=== PATIENT | male | born 1940 | race Caucasian/White ===

== ENCOUNTER 2016-10-19 09:30 | Observation (INO) ==
--- NOTE | 2016-10-19 09:43 | Emergency Department Note ---
Disposition Clinical Impression: Antibiotic-associated diarrhea, Dehydration Disposition: Admitted As Inpatient Condition: Undetermined Time of Disposition: 12:36 Arrhythmia/Palpitations HPI - General Chief Complaint: ED Arrhythmia/Palpitations Stated Complaint: Weakness/ Arrhythmia Time Seen by Provider: 10/19/16 09:39 Source: patient, EMS Mode of arrival: EMS Limitations: no limitations Nursing Notes Reviewed: Yes Vital Signs Reviewed: Yes - History of Present Illness HPI Narrative: 76-year-old male with history of irregular heartbeat where he takes atenolol, arrives to [facility] emergency department with diarrhea, vomiting, weakness. The patient states that he typically has diarrhea due to diet but states that roughly 1 week ago it acutely worsened. The patient states in addition that it acutely worsened even more yesterday evening. The patient states he is having severe diarrhea at this time. In addition the patient states that roughly 11 PM last night he began vomiting. The patient has had 3-4 episodes of vomiting since then. The patient's became concerned as she checked on the patient overnight and he was tachycardic with a heart rate in the 130s. She administered his atenolol to attempt to slow his heart rate down. The patient states that he vomited after taking the atenolol. He denies any associated abdominal pain with this. The states that the patient was recently treated with 2 different antibiotics for a UTI. He was on Bactrim but the bacteria was resistant. He was placed on Macrobid which she finished yesterday. The patient does state that he was fly fishing in [place] but was not camping and did not drink any water while he was out fly fishing. The patient denies any other change in his routine or symptoms. The patient did recently return from a 7 hour car ride yesterday but states that nothing was abnormal with it. The patient denies any other complaints at this time including chest pain, difficulty breathing, abdominal pain, focalized weakness, fever, chills. Pt Subjective Complaint: rapid heart beat Onset (ago): day(s) (1) Associated symptoms: Reports: nausea, vomiting, other (Diarrhea) - Related Data Home Medications Medication Instructions Recorded Confirmed Acetaminophen [Tylenol] 650 mg PO HS PRN 10/19/16 10/19/16 Aspirin 325 mg PO DAILY 10/19/16 10/19/16 Atenolol [Tenormin] 25 mg PO DAILY 10/19/16 10/19/16 Cholecalciferol (Vitamin D3) 1,000 unit PO DAILY 10/19/16 10/19/16 [Vitamin D] Cinnamon Bark [Cinnamon] 1,000 mg PO DAILY 10/19/16 10/19/16 Cranberry 500 mg PO DAILY 10/19/16 10/19/16 Cyanocobalamin (Vitamin B-12) 1,000 mcg SL DAILY 10/19/16 10/19/16 [Vitamin B-12] Metformin HCl [Glucophage] 1,000 mg PO BID 10/19/16 10/19/16 Allergies Allergy/AdvReac Type Severity Reaction Status Date / Time No Known Allergies Allergy Verified 10/19/16 12:48 All systems ED: reviewed and negative except as stated. Constitutional: Reports: weakness. Denies: fever, chills, weight change Cardiovascular: Denies: chest pain, palpitations, dyspnea on exertion, edema, syncope Respiratory: Denies: cough, dyspnea, wheezes, hemoptysis, stridor Gastrointestinal: Reports: nausea, vomiting, diarrhea. Denies: abdominal pain, constipation, hematemesis, melena, hematochezia Genitourinary: Reports: frequency. Denies: urgency, dysuria, hematuria Musculoskeletal: Denies: back pain, neck pain, arthralgia, myalgia Integumentary: Denies: rash, abrasion, lesions Neurological: Reports: weakness. Denies: headache, numbness, paresthesias, confusion, abnormal gait, vertigo Past Medical History - Past Medical History Attestation: Yes The following information was validated with the patient. Source: patient, obtained from family Medical history: Reports: atrial fibrillation, diabetes, hypertension Surgical history: Reports: appendectomy, other Psychiatric history: Reports: no psych history - Social History Smoking Status: Former smoker Smokeless Tobacco Status: No Alcohol use: Reports: occasionally Drug use: Reports: none Physical Exam - General Limitations: no limitations General appearance: alert, in no apparent distress - Head Head exam: atraumatic, normocephalic, normal inspection - ENT ENT exam: mucous membranes dry - Neck Neck exam: Present: normal inspection, full ROM, trachea midline - Chest Chest inspection: Present: normal inspection, symmetric chest wall rise - Respiratory Respiratory exam: Present: normal lung sounds bilaterally - Cardiovascular Cardiovascular exam: Present: normal rhythm, tachycardia, normal heart sounds - Abdominal Exam Abdominal exam: Present: soft, Non-Tender, normal bowel sounds. Absent: tenderness, distention, guarding, rebound, rigidity, psoas sign, obturator sign , heel tap sign, Nagy's sign, Rovsing's sign, tenderness at McBurney's Point - Extremities Exam Extremities exam: Present: normal inspection, full ROM. Absent: tenderness, pedal edema - Neurological Exam Neurological exam: Present: alert, oriented X3, CN II-XII intact - Skin Skin exam: Present: warm, dry, intact, normal color Course - Reevaluation(s) Reevaluation #1: Patient's heart rate continues to be in the 130s after 1 L fluid. We will administer second liter. Urinalysis is unremarkable. Labs are otherwise unremarkable. We will determine if second liter does improve his heart rate. If his heart rate does not improve after the second liter, we will administer the patient's dose of atenolol as the patient likely vomited his last dose. The patient will likely be admitted to the hospital given his tachycardia and his symptoms. Stool cultures currently pending. Patient agrees to plan. Vital Signs Temperature 97.9 F 10/19/16 09:32 Pulse Rate 115 10/19/16 09:32 Respiratory Rate 16 10/19/16 09:32 Blood Pressure 125/87 10/19/16 09:32 O2 Sat by Pulse Oximetry 95 10/19/16 09:32 Temperature 97.8 F 10/19/16 14:17 Pulse Rate 98 10/19/16 14:17 Respiratory Rate 16 10/19/16 14:17 Blood Pressure 108/70 10/19/16 14:17 O2 Sat by Pulse Oximetry 98 10/19/16 14:17 Oxygen Delivery Oxygen Delivery Room Air Arrhythmia/Palpitations - MDM Narrative Medical decision making narrative: She states she is feeling much better at this time after receiving 2 L IV fluids. We will administer IV fluids at 200 mL per hour. Patient's tachycardia has began to resolve as the patient's heart rate is jumping between 105-110. This is improved from the 1:30 that he was previously. The patient denies any other complaints at this time. Given the patient's continued tachycardia, we will admit the patient to the hospital for further observation. Patient agrees to this plan. Accepted by Dr. Juan. - Lab Data Lab results reviewed: Yes I reviewed the patient's lab results. Result diagrams: 10/19/16 09:43 10/19/16 09:43 Lab Results 10/19/16 10/19/16 10/19/16 Range/Units 09:43 09:43 09:43 WBC 8.7 (4.3-11.1) K/mcL RBC 4.30 (4.19-5.50) M/mcL Hgb 13.5 (12.9-16.9) g/dL Hct 38.7 (37.5-50.1) % MCV 90.0 (83.0-100.0) fL MCH 31.4 (28.0-33.3) pg MCHC 34.9 (31.6-35.5) g/dL RDW 12.8 (11.5-14.5) % Plt Count 207 (140-400) K/mcL MPV 9.1 L (9.4-12.4) fL Immature Gran % 0.5 (0-4) % Seg Neutrophils % 80.6 % Lymphocytes % 12.8 % Monocytes % 6.0 % Eosinophils % 0.0 % Basophils % 0.1 % Neutrophils # 7.0 (1.6-8.9) K/mcL Lymphocytes # 1.1 (0.6-4.6) K/mcL Monocytes # 0.5 (0.0-1.3) K/mcL Eosinophils # 0.0 (0.0-0.6) K/mcL Basophils # 0.0 (0.0-0.2) K/mcL Sodium 134 L (136-145) mEq/L Potassium 4.1 (3.5-4.5) mEq/L Chloride 100 (98-109) mEq/L Carbon Dioxide 28 (19-29) mEq/L BUN 15 (8-26) mg/dL Creatinine 0.64 L (0.72-1.25) mg/dL Est GFR ( Amer) > 60 (> 60) Est GFR (Non-Af Amer) > 60 (> 60) BUN/Creatinine Ratio 23 (6-26) Glucose 185 H (70-99) mg/dL Calculated Osmolality 284 (280-300) Lactic Acid 1.4 (0.5-2.2) mmol/L Calcium 8.6 (8.6-10.8) mg/dL Urine Color (Yellow) Urine Clarity (Clear) Urine pH (5.0-8.0) pH Units Ur Specific [place] (1.010-1.025) Urine Protein (Neg-Trace) mg/dL Urine Glucose (UA) (Normal) mg/dL Urine Ketones (Negative) mg/dL Urine Blood (Negative) Urine Nitrite (Negative) Urine Bilirubin (Negative) Urine Urobilinogen (Normal) mg/dL Ur Leukocyte Esterase (Negative) Ur Culture Indicated? (NO) 10/19/16 Range/Units 10:52 WBC (4.3-11.1) K/mcL RBC (4.19-5.50) M/mcL Hgb (12.9-16.9) g/dL Hct (37.5-50.1) % MCV (83.0-100.0) fL MCH (28.0-33.3) pg MCHC (31.6-35.5) g/dL RDW (11.5-14.5) % Plt Count (140-400) K/mcL MPV (9.4-12.4) fL Immature Gran % (0-4) % Seg Neutrophils % % Lymphocytes % % Monocytes % % Eosinophils % % Basophils % % Neutrophils # (1.6-8.9) K/mcL Lymphocytes # (0.6-4.6) K/mcL Monocytes # (0.0-1.3) K/mcL Eosinophils # (0.0-0.6) K/mcL Basophils # (0.0-0.2) K/mcL Sodium (136-145) mEq/L Potassium (3.5-4.5) mEq/L Chloride (98-109) mEq/L Carbon Dioxide (19-29) mEq/L BUN (8-26) mg/dL Creatinine (0.72-1.25) mg/dL Est GFR ( Amer) (> 60) Est GFR (Non-Af Amer) (> 60) BUN/Creatinine Ratio (6-26) Glucose (70-99) mg/dL Calculated Osmolality (280-300) Lactic Acid (0.5-2.2) mmol/L Calcium (8.6-10.8) mg/dL Urine Color Yellow (Yellow) Urine Clarity Clear (Clear) Urine pH 7.0 (5.0-8.0) pH Units Ur Specific [place] 1.016 (1.010-1.025) Urine Protein Negative (Neg-Trace) mg/dL Urine Glucose (UA) 250 H (Normal) mg/dL Urine Ketones Negative (Negative) mg/dL Urine Blood Negative (Negative) Urine Nitrite Negative (Negative) Urine Bilirubin Negative (Negative) Urine Urobilinogen Normal (Normal) mg/dL Ur Leukocyte Esterase Negative (Negative) Ur Culture Indicated? NO (NO) - EKG Data EKG attestation: Yes I reviewed and interpreted this EKG. EKG results narrative: Heart rate 1 18 bpm. QTC 378 ms. Normal axis. Atrial fibrillation. No ST elevation or ST depression noted. EKG similar to EKG from 04/04/2016 with the exception of noted atrophic relation on current EKG. No other acute findings noted. Attestation Statement - Attestation Attestation: I examined this patient and my medical decision-making was reviewed with the Resident Physician. I agree with the documented findings, disposition and treatment plan as described except to the extent set forth below. Chronic A-fib pt presents with profuse antibiotic-associated diarrhea and with vomiting,elevated HR. Feeling significantly better but not back to baseline after hydration, HR has improved but not normalized. Agree with work up and treatment initiated by Dr. Gordon, discussed with him in detail.
[2016-10-19 09:53] LABS: Basophils % 0.1 %; Hematocrit 38.7 % (37.5-50.1); Hemoglobin 13.5 g/dL (12.9-16.9); Immature Granulocytes % 0.5 % (0-4); Lymphocytes # 1.1 K/mcL (0.6-4.6); Lymphocytes % 12.8 %; Mean Corpuscular HGB Conc 34.9 g/dL (31.6-35.5); Mean Corpuscular Hemoglobin 31.4 pg (28.0-33.3); Mean Platelet Volume 9.1 fL (9.4-12.4); Monocytes # 0.5 K/mcL (0.0-1.3); Platelet Count 207 K/mcL (140-400); Red Cell Distribution Width 12.8 % (11.5-14.5); Segmented Neutrophils % 80.6 %
[2016-10-19 10:05] LABS: BUN/Creatinine Ratio 23 (6-26); Blood Urea Nitrogen 15 mg/dL (8-26); Calcium 8.6 mg/dL (8.6-10.8); Carbon Dioxide 28 mEq/L (19-29); Chloride 100 mEq/L (98-109); Glucose 185 mg/dL (70-99); Osmolality,Calculated 284 (280-300); Potassium 4.1 mEq/L (3.5-4.5); Sodium 134 mEq/L (136-145); eGFR For African Americans > 60 (> 60); eGFR For Non-African Americans > 60 (> 60)
[2016-10-19] MEDS ORDERED: 0.9 % Sodium Chloride 1,000 ML IVC ONE (11:05)
[2016-10-19 11:08] LABS: Bilirubin,Urine Negative (Negative); Blood,Urine Negative (Negative); Clarity,Urine Clear (Clear); Color,Urine Yellow (Yellow); Glucose,Urine (UA) 250 mg/dL (Normal); Ketones,Urine Negative (Negative); Leukocyte Esterase,Urine Negative (Negative); Nitrite,Urine Negative (Negative); Protein,Urine Negative (Neg-Trace); Specific Gravity,Urine 1.016 (1.010-1.025); Urobilinogen,Urine Normal (Normal)
[2016-10-19] MEDS ORDERED: 0.9 % Sodium Chloride 1,000 ML IVC SCH (12:45)
[2016-10-19] MEDS ORDERED: Naloxone 0.4 MG/ML INJ IVP PRN (13:37)
[2016-10-19] MEDS ORDERED: Ondansetron 4 MG/2 ML VIAL IVP PRN (13:37)
[2016-10-19] MEDS ORDERED: Acetaminophen 325 MG TABLET PO PRN (13:42)
[2016-10-19] MEDS ORDERED: Dextrose Gel 15 GM PO PRN ×2 (13:43)
[2016-10-19] MEDS ORDERED: D5% in Water 1,000 ML IVC PRN (13:43)
[2016-10-19] MEDS ORDERED: *HR* Dextrose 50 % in Water (Syg) 50 ML SYRINGE IVP PRN (13:43)
--- NOTE | 2016-10-19 13:46 | Internal Med History&Physical ---
<Gómez Ramírez - Last Filed: 10/19/16 15:43> Date of Encounter: 10/19/16 Time of Encounter: 13:00 Assessment and Plan (1) A-fib Current visit: Yes Status: Acute Assess: Patient presents with history of atrial fibrillation and reports this is a new episode. Most likely due to dehydration status, nausea, vomiting. Plan: Continuous cardiac oil expert patient vital signs Continue Atenolol Qualifiers: Atrial fibrillation type: unspecified Qualified Code(s): I48.91 - Unspecified atrial fibrillation (2) Nausea & vomiting Current visit: Yes Status: Acute Assess: Patient presents with non-intractable nausea and vomiting for the past week. Plan: Blood cultures ordered Urine culture ordered Nothing by mouth diet with progression to clear liquid diet as tolerated IV Zofran ordered IV Protonix 40 mg daily ordered Qualifiers: Vomiting type: cyclical vomiting Vomiting Intractability: non-intractable Qualified Code(s): G43.A0 - Cyclical vomiting, not intractable (3) Diarrhea Current visit: Yes Status: Acute Assess: Patient presents with acute diarrhea which she reports has been occurring for the past week in association with nausea and vomiting. Patient was recently placed on Bactrim then Macrobid for recent UTI. Cannot rule out possible C. diff infection. Plan: C. diff culture ordered Stool culture ordered Ova/parasite culture ordered Consider infection coverage for C. diff when results are known Qualifiers: Diarrhea type: unspecified type Qualified Code(s): R19.7 - Diarrhea, unspecified (4) Weakness generalized Current visit: Yes Status: Acute Assess: Patient presents with generalized weakness due to repeated episodes of nausea, vomiting, and diarrhea over the past week. Plan: Falls precautions [id number] status Bed rest with bedside commode with assist (5) Dehydration Current visit: Yes Status: Acute Assess: Patient presents with acute dehydration due to repeated nausea, vomiting, diarrhea for the past week. Plan: Administer IV fluids Follow-up labs ordered NPO status with progression to clear liquid diet as tolerated (6) DVT prophylaxis Current visit: Yes Status: Acute Assess: Patient to be placed on DVT prophylaxis due to admission protocol and bed rest status. Plan: Heparin 5,000 units SQ Q8 Internal Medicine - H&P: HPI Chief complaint: N/V/Diarrhea Admitted From: Emergency Dept Plans for Post Hospital Care: Home History of present illness: Mr. Phillips is a 76 year old male who presents from the ED with chief complaint of nausea, vomiting, and diarrhea for the week that has become progressively worse. Patient reports they went camping and stayed in a cabin and ate at the [employer] and then his symptoms began and worsened on the trip home. Patient reports dizziness, blurry vision, confusion, and urinary incontinence which have accompanied these symptoms. Mr. Phillips states that he was recently diagnosed with a UTI and placed on PO Bactrim but organism was found to be resistant. Patient was then placed on Macrobid and completed his last round today. Patient is currently dehydrated due to repeated N/V/D and has received IV fluids 200 mL/HR in ED. We will continue IV fluids and he will be placed on continuous cardiac telemetry. Orders placed for C. difficile, blood cultures, stool cultures, ova/parasites, and urine cultures. Patient to be placed nothing by mouth status with advancement to clear liquid diet as tolerated. Patient is at moderate risk due to atrial fibrillation and risk factors as well as current dehydration status and will replace his observation with falls precautions and up with assist only. Time spent with patient >40minutes. Past Med Surg Social Fam HX - Past Medical History Source: patient Medical history: atrial fibrillation, diabetes, hypertension Psychiatric history: no psych history - Past Surgical History Surgical History: appendectomy, other - Social History Smoking Status: Former smoker Smokeless Tobacco Status: No Alcohol use: occasionally Drug use: none - Family History Father Race: Family Member Ethnicity: Non- Living Status: Age at : 70 Cause of : Colon cancer Hx Family Cancer: Yes (Colon) Mother Race: Family Member Ethnicity: Non- Living Status: Age at : 92 Cause of : Cancer Hx Family Cancer: Yes (Breast, uterine, cervical) Sister Race: Family Member Ethnicity: Non- Living Status: Still Living Hx Family Cardiac Disorders: Yes (Afib) Hx Family Endocrine Disorder: Yes (DM) Internal Medicine - H&P: Meds Acetaminophen [Tylenol] 650 mg PO HS PRN 10/19/16 [History] Aspirin 325 mg PO DAILY 10/19/16 [History] Atenolol [Tenormin] 25 mg PO DAILY 10/19/16 [History] Cholecalciferol (Vitamin D3) [Vitamin D] 1,000 unit PO DAILY 10/19/16 [History] Cinnamon Bark [Cinnamon] 1,000 mg PO DAILY 10/19/16 [History] Cranberry 500 mg PO DAILY 10/19/16 [History] Cyanocobalamin (Vitamin B-12) [Vitamin B-12] 1,000 mcg SL DAILY 10/19/16 [ History] Metformin HCl [Glucophage] 1,000 mg PO BID 10/19/16 [History] Allergies No Known Allergies Allergy (Verified 10/19/16 12:48) All Systems PM: A 10-system review of systems was performed and is negative for pertinent findings except as documented above in the HPI. - Constitutional Constitutional: no chills, no fever(s), no night sweats - EENT Eyes: as per HPI, blurry vision Ears: no ear discharge, no ear pain, no tinnitus Nose, mouth and throat: no dysphagia, no nasal discharge, no neck pain, no sore throat - Cardiovascular Cardiovascular ROS IM: as per HPI, irregular heart rhythm - Respiratory Respiratory: no cough, no dyspnea, no wheezing, no excessive phlegm production - Gastrointestinal Gastrointestinal: as per HPI, diarrhea, nausea, vomiting - Genitourinary Genitourinary ROS male: as per HPI, urinary incontinence - Musculoskeletal Musculoskeletal ROS IM: no numbness, no tingling - Integumentary Integumentary IM: no rash, no unusual bruising - Neurological Neurological ROS: no confusion, no convulsions, no focal weakness, no numbness, no tingling, no tremor(s) - Psychiatric Psychiatric: as per HPI - Endocrine Endocrine IM: as per HPI - Hematologic/Lymphatic Hematologic/Lymphatic: as per HPI - Allergic/Immunologic Allergic/Immunologic: as per HPI - Constitutional Vitals: Temp Pulse Resp BP Pulse Ox 97.9 F 111 16 99/62 95 10/19/16 09:32 10/19/16 11:00 10/19/16 11:00 10/19/16 11:00 10/19/16 11:00 General appearance: Present: cooperative, A&O X 3, pleasant, no acute distress, answers questions appropriately - Head Head exam: Present: atraumatic, normocephalic - Eye Eye exam: Present: PERRL, conjuntiva pink, sclera anicteric Pupils: Present: PERRL - ENT ENT exam: Present: normal exam, normal external ear exam - Neck Neck exam general surgery: Present: supple, trachea midline. Absent: lymphadenopathy - Respiratory Respiratory exam: Present: CTAB. Absent: accessory muscle use, rales, rhonchi, wheezes - Cardiovascular Cardiovascular exam: Present: irregular rhythm - GI/Abdominal GI/Abdominal exam: Present: diminished bowel sounds, soft - Rectal Rectal exam: Present: deferred - Additional comments: exam deferred. - Extremities Exam Extremities exam: Present: normal inspection, warm, radial pulses palpable and symetrical. Absent: calf tenderness, cyanotic, pedal edema - Back Exam Back exam: Present: normal inspection - Neurological Exam Neurological exam: Present: CN II-XII intact, oriented X3, no focal deficits. Absent: pronater drift, facial droop, speech deficit - Psychiatric Psychiatric exam: Present: normal affect, normal mood - Skin Skin exam: Present: dry, intact Internal Med - H&P Results - Labs CBC & Chem 7: 10/19/16 09:43 10/19/16 09:43 - EKG Data Prior EKG available for review: yes When compared to previous EKG: there are significant changes EKG comments: 10/19/16 13:59 EKG dated 04/04/16 shows sinus rhythm with occasional ventricular premature complexes. EKG dated 10/19/16 shows atrial fibrillation with rapid ventricular response. <Faye Juan - Last Filed: 10/19/16 16:07> Date of Encounter: 10/19/16 Time of Encounter: 14:00 Internal Medicine - H&P: HPI History of present illness: Mr. Phillips is a 76 year old male All Systems PM: A 10-system review of systems was performed and is negative for pertinent findings except as documented above in the HPI. - Constitutional Vitals: Temp Pulse Resp BP Pulse Ox 97.8 F 98 16 108/70 98 10/19/16 14:17 10/19/16 14:17 10/19/16 14:17 10/19/16 14:17 10/19/16 14:17 Internal Med - H&P Results - Labs CBC & Chem 7: 10/19/16 09:43 10/19/16 09:43 - Attending Attestation I examined this patient and my medical decision-making was reviewed with the nurse practitioner. I agree with the documented history of present illness, review of systems, past medical, surgical social and family histories and examination findings, disposition and treatment plan as described above except to any changes set forth below. 76-year-old male patient with a history of paroxysmal atrial fibrillation, diabetes mellitus and hypertension presented to the ER with complaints of nausea and vomiting and diarrhea that began a week the back and has been progressively getting worse. He had been recently treated for UTI with 2 different courses of antibiotics. On arrival to the ER the patient was found to be in rapid A. fib and was also noted to be dehydrated. She was given IV fluids with improvement in his heart rate. He denies any chest pain. He has not had any further episodes of diarrhea here but, with his says that she will receive Imodium prior to coming in here. He has not been able to take his atenolol this morning due to nausea and vomiting. On examination, patient has irregularly irregular rhythm with tachycardia, mucous membranes are moist. Respiratory examination shows normal breath sounds. No pedal edema. Paroxysmal atrial fibrillation with rapid ventricular response: Likely related to dehydration and hypovolemia and inability to take atenolol. Improving with volume replacement. Monitor with telemetry. If heart rate continues to improve , we will not need any further medications besides resuming atenolol. Patient is currently not on anticoagulation. Nausea and vomiting along with diarrhea: Could be viral gastroenteritis but concern for C. difficile due to recent antibiotic use. We will check stool for C. difficile. Also checking for ova and parasites and other bacteria. Diabetes mellitus type 2: Monitor blood sugars. Sliding scale insulin. Patient will be nothing by mouth and then based on his symptoms may advance diet slowly to a diabetic diet.
[2016-10-19] MEDS ORDERED: Insulin LISPRO 300 UNITS/3 ML VIAL SQ SCH ×2 (16:30→21:00)
--- NOTE | 2016-10-19 17:32 | Electrocardiograph Report ---
[address] [place], [place] [address] Test Date: 2016-10-19 Pat Name: Chau Phillips Department: 105 Room: 3B16 Gender: M Lineman A Class: : 1940 Requested By: Gómez Gordon Order Number: [id number] Reading MD: Blanca Gamez Measurements Intervals Palms Rate: 118 P: CT: 0 QRS: -2 QRSD: 88 T: -2 QT: 308 QTc: 378 Interpretive Statements ATRIAL FIBRILLATION WITH RAPID VENTRICULAR RESPONSE Electronically Signed On 10-19-2016 17:31:12 EDT by Blanca Gamez
[2016-10-19 18:52] VITALS: BP 95/53
[2016-10-19] MEDS ORDERED: *HR* Heparin 5,000 UNIT/ML VIAL SQ SCH (22:00)
[2016-10-20] MEDS ORDERED: Aspirin 325 MG TABLET PO SCH (09:00)
[2016-10-20] MEDS ORDERED: Cholecalciferol (D-3) 1,000 UNIT TABLET PO SCH (09:00)
[2016-10-20] MEDS ORDERED: Pantoprazole 40 MG VIAL IVP SCH (09:00)
== END 2016-10-19 21:50 | disposition other institution (70) ==
LOC: 3BNU 09:30 → EMEROO 09:30 → 3BNU 13:49
PROVIDERS: ADMIT Internal Medicine; ATTEND Registered Nurse

== ENCOUNTER 2019-03-08 09:33 | Inpatient (IN) ==
[2019-03-08 10:15] LABS: Basophils % 0.3 %; Eosinophils # 0.2 K/mcL (0.0-0.6); Eosinophils % 1.9 %; Hematocrit 40.5 % (37.5-50.1); Hemoglobin 13.7 g/dL (12.9-16.9); Immature Granulocytes % 0.3 % (0-4); Lymphocytes # 0.9 K/mcL (0.6-4.6); Lymphocytes % 8.2 %; Mean Corpuscular HGB Conc 33.8 g/dL (31.6-35.5); Mean Corpuscular Volume 88.6 fL (83.0-100.0); Mean Platelet Volume 9.3 fL (9.4-12.4); Monocytes % 8.9 %; Neutrophils # 9.2 K/mcL (1.6-8.9); Platelet Count 218 K/mcL (140-400); Red Blood Count 4.57 M/mcL (4.19-5.50); Red Cell Distribution Width 12.9 % (11.5-14.5); Segmented Neutrophils % 80.4 %; White Blood Count 11.4 K/mcL (4.3-11.1)
[2019-03-08 10:18] LABS: INR 1.8; Prothrombin Time 20.6 Seconds (9.4-12.1)
[2019-03-08 10:19] LABS: Bilirubin,Urine Negative (Negative); Blood,Urine Small (Negative); Clarity,Urine Cloudy (Clear); Color,Urine Yellow (Yellow); Glucose,Urine (UA) Normal (Normal); Ketones,Urine Negative (Negative); Leukocyte Esterase,Urine Moderate (Negative); Nitrite,Urine Negative (Negative); Protein,Urine Negative (Neg-Trace); Specific Gravity,Urine 1.016 (1.010-1.025); Urobilinogen,Urine Normal (Normal)
[2019-03-08 10:22] LABS: Bacteria,Urine None Seen per hpf (None-Few); Hyaline Casts,Urine Moderate per lpf (None-Few); RBC,Urine 0-3 per hpf (0-3); Squamous Epithelial Cell,Urine Moderate per lpf (None-Few); WBC,Urine 30-50 per hpf (0-3)
[2019-03-08 10:35] LABS: Alanine Aminotransferase 10 Units/L (7-52); Albumin 4.1 g/dL (3.5-5.7); Albumin/Globulin Ratio 1.4 (1.1-2.2); Alkaline Phosphatase 36 Units/L (34-104); Aspartate Amino Transferase 12 Units/L (13-39); BUN/Creatinine Ratio 26 (6-26); Bilirubin,Direct 0.1 mg/dL (0.0-0.2); Bilirubin,Indirect 0.8 mg/dL (0.0-1.0); Bilirubin,Total 0.9 mg/dL (0.3-1.0); Blood Urea Nitrogen 19 mg/dL (8-23); Calcium 9.2 mg/dL (8.6-10.3); Carbon Dioxide 29 mEq/L (23-29); Chloride 100 mEq/L (98-107); Globulin 2.9 g/dL (2.4-3.5); Glucose 148 mg/dL (70-105); Osmolality,Calculated 287 (280-300); Potassium 4.1 mEq/L (3.5-5.1); Sodium 136 mEq/L (136-145); Troponin I < 0.03 ng/mL (< 0.04); eGFR For African Americans > 60 (> 60); eGFR For Non-African Americans > 60 (> 60)
[2019-03-08] MEDS ORDERED: Isovue-370 500 ML BOTTLE IVP ONE (10:41)
[2019-03-08] MEDS ORDERED: Piperacillin/Tazobactam 3.375 GM in Water for inj. (sterile) 20 ML IVP ONE (12:20)
[2019-03-08] MEDS ORDERED: Naloxone 0.4 MG/ML INJ IVP PRN (12:42)
[2019-03-08] MEDS ORDERED: D5% in Water 1,000 ML IVC PRN (12:45)
[2019-03-08] MEDS ORDERED: *HR* Dextrose 50 % in Water (Syg) 50 ML SYRINGE IVP PRN (12:45)
[2019-03-08] MEDS ORDERED: Dextrose Gel 15 GM/37.5 ML TUBE PO PRN ×2 (12:45)
[2019-03-08 13:00] LABS: Estimated Average Glucose 171 mg/dl
[2019-03-08] MEDS ORDERED: 0.9 % Sodium Chloride 1,000 ML IVC ONE (14:00)
[2019-03-08] MEDS: 0.9 % Sodium Chloride 1,000 ML IVC SCH (16:02)
[2019-03-08] MEDS: Insulin LISPRO 300 UNITS/3 ML VIAL SQ SCH (16:48)
[2019-03-08] MEDS: Piperacillin/Tazobactam 3.375 GM in 0.9 % Sodium Chloride Mini Bag 100 ML IVPB SCH (17:37)
[2019-03-08] MEDS ORDERED: *HR* Warfarin 3 MG TABLET PO ONE (18:00)
[2019-03-08] MEDS ORDERED: Warfarin perPT PO PRN (18:00)
[2019-03-09] MEDS: Piperacillin/Tazobactam 3.375 GM in 0.9 % Sodium Chloride Mini Bag 100 ML IVPB SCH ×3 (00:24→18:26)
[2019-03-09] MEDS: 0.9 % Sodium Chloride 1,000 ML IVC SCH ×3 (00:26→20:26)
[2019-03-09 05:25] LABS: Basophils % 0.5 %; Eosinophils # 0.2 K/mcL (0.0-0.6); Eosinophils % 3.6 %; Hematocrit 32.9 % (37.5-50.1); INR 1.8; Immature Granulocytes % 0.3 % (0-4); Lymphocytes # 1.7 K/mcL (0.6-4.6); Lymphocytes % 25.8 %; Mean Corpuscular HGB Conc 32.8 g/dL (31.6-35.5); Mean Corpuscular Hemoglobin 29.4 pg (28.0-33.3); Mean Corpuscular Volume 89.6 fL (83.0-100.0); Mean Platelet Volume 9.6 fL (9.4-12.4); Monocytes # 0.8 K/mcL (0.0-1.3); Monocytes % 12.6 %; Neutrophils # 3.7 K/mcL (1.6-8.9); Platelet Count 191 K/mcL (140-400); Red Blood Count 3.67 M/mcL (4.19-5.50); Red Cell Distribution Width 12.9 % (11.5-14.5); Segmented Neutrophils % 57.2 %; White Blood Count 6.4 K/mcL (4.3-11.1)
[2019-03-09 05:27] LABS: Hemoglobin 10.8 g/dL (12.9-16.9)
[2019-03-09 05:39] LABS: BUN/Creatinine Ratio 28 (6-26); Blood Urea Nitrogen 22 mg/dL (8-23); Calcium 8.1 mg/dL (8.6-10.3); Carbon Dioxide 29 mEq/L (23-29); Chloride 108 mEq/L (98-107); Glucose 130 mg/dL (70-105); Magnesium 1.8 mg/dL (1.6-2.6); Osmolality,Calculated 295 (280-300); Phosphorous 2.7 mg/dL (2.7-4.5); Potassium 3.9 mEq/L (3.5-5.1); Sodium 140 mEq/L (136-145); eGFR For African Americans > 60 (> 60); eGFR For Non-African Americans > 60 (> 60)
[2019-03-09] MEDS: Insulin LISPRO 300 UNITS/3 ML VIAL SQ SCH ×4 (08:32→21:43)
[2019-03-09] MEDS: Cyanocobalamin (B-12) 1,000 MCG TABLET PO SCH (08:36)
[2019-03-09] MEDS: Cholecalciferol (D-3) 1,000 UNIT (25MCG) TABLET PO SCH (08:37)
[2019-03-09] MEDS: Multivit/Ca/Min/Fe/FA 1 TAB TABLET PO SCH (08:37)
[2019-03-09] MEDS: Pantoprazole 40 MG VIAL IVP SCH (08:38)
[2019-03-09] MEDS: Carbidopa/Levodopa 25/250 TABLET PO SCH ×2 (08:38→18:25)
[2019-03-09] MEDS ORDERED: *HR* Warfarin 1 MG TABLET PO SCH (09:00)
[2019-03-09 12:04] LABS: Hematocrit 34.3 % (37.5-50.1); Hemoglobin 11.4 g/dL (12.9-16.9)
[2019-03-09] MEDS ORDERED: *HR* Warfarin 3 MG TABLET PO ONE (18:00)
[2019-03-09] MEDS: Carbidopa/Levodopa ER 50/200 TABLET PO SCH (20:24)
[2019-03-10] MEDS: Piperacillin/Tazobactam 3.375 GM in 0.9 % Sodium Chloride Mini Bag 100 ML IVPB SCH ×4 (00:15→23:24)
[2019-03-10] MEDS: 0.9 % Sodium Chloride 1,000 ML IVC SCH ×2 (04:40→08:48)
[2019-03-10 06:10] LABS: Basophils % 0.4 %; Eosinophils # 0.2 K/mcL (0.0-0.6); Hematocrit 35.5 % (37.5-50.1); Hemoglobin 11.3 g/dL (12.9-16.9); Immature Granulocytes % 0.3 % (0-4); Lymphocytes # 1.9 K/mcL (0.6-4.6); Lymphocytes % 24.4 %; Mean Corpuscular HGB Conc 31.8 g/dL (31.6-35.5); Mean Corpuscular Hemoglobin 29.4 pg (28.0-33.3); Mean Corpuscular Volume 92.2 fL (83.0-100.0); Mean Platelet Volume 9.7 fL (9.4-12.4); Monocytes # 0.6 K/mcL (0.0-1.3); Monocytes % 7.6 %; Neutrophils # 4.9 K/mcL (1.6-8.9); Platelet Count 196 K/mcL (140-400); Red Blood Count 3.85 M/mcL (4.19-5.50); Red Cell Distribution Width 12.9 % (11.5-14.5); Segmented Neutrophils % 64.3 %; White Blood Count 7.6 K/mcL (4.3-11.1)
[2019-03-10 06:12] LABS: INR 1.5; Prothrombin Time 17.4 Seconds (9.4-12.1)
[2019-03-10 06:29] LABS: BUN/Creatinine Ratio 24 (6-26); Blood Urea Nitrogen 17 mg/dL (8-23); Calcium 8.5 mg/dL (8.6-10.3); Carbon Dioxide 30 mEq/L (23-29); Chloride 105 mEq/L (98-107); Glucose 102 mg/dL (70-105); Osmolality,Calculated 292 (280-300); Potassium 3.8 mEq/L (3.5-5.1); Sodium 140 mEq/L (136-145); eGFR For African Americans > 60 (> 60); eGFR For Non-African Americans > 60 (> 60)
[2019-03-10] MEDS: Insulin LISPRO 300 UNITS/3 ML VIAL SQ SCH ×4 (07:28→20:11)
[2019-03-10] MEDS: Cyanocobalamin (B-12) 1,000 MCG TABLET PO SCH (08:38)
[2019-03-10] MEDS: Multivit/Ca/Min/Fe/FA 1 TAB TABLET PO SCH (08:39)
[2019-03-10] MEDS: Cholecalciferol (D-3) 1,000 UNIT (25MCG) TABLET PO SCH (08:39)
[2019-03-10] MEDS: Pantoprazole 40 MG VIAL IVP SCH (08:39)
[2019-03-10] MEDS: Carbidopa/Levodopa 25/250 TABLET PO SCH ×3 (08:39→17:25)
[2019-03-10] MEDS ORDERED: *HR* Warfarin 3 MG TABLET PO ONE (18:00)
[2019-03-10] MEDS: Carbidopa/Levodopa ER 50/200 TABLET PO SCH (20:09)
[2019-03-11] MEDS: 0.9 % Sodium Chloride 1,000 ML IVC SCH ×2 (03:09→17:36)
[2019-03-11 06:01] LABS: Basophils % 0.6 %; Eosinophils # 0.2 K/mcL (0.0-0.6); Eosinophils % 3.1 %; Hematocrit 34.7 % (37.5-50.1); Hemoglobin 11.3 g/dL (12.9-16.9); Immature Granulocytes % 0.3 % (0-4); Lymphocytes # 1.8 K/mcL (0.6-4.6); Lymphocytes % 24.8 %; Mean Corpuscular HGB Conc 32.6 g/dL (31.6-35.5); Mean Corpuscular Hemoglobin 29.1 pg (28.0-33.3); Mean Corpuscular Volume 89.4 fL (83.0-100.0); Mean Platelet Volume 9.8 fL (9.4-12.4); Monocytes # 0.6 K/mcL (0.0-1.3); Monocytes % 8.9 %; Neutrophils # 4.4 K/mcL (1.6-8.9); Platelet Count 230 K/mcL (140-400); Red Blood Count 3.88 M/mcL (4.19-5.50); Red Cell Distribution Width 12.7 % (11.5-14.5); Segmented Neutrophils % 62.3 %; White Blood Count 7.1 K/mcL (4.3-11.1)
[2019-03-11 06:11] LABS: INR 1.4; Prothrombin Time 16.2 Seconds (9.4-12.1)
[2019-03-11 06:21] LABS: BUN/Creatinine Ratio 17 (6-26); Blood Urea Nitrogen 12 mg/dL (8-23); Calcium 8.5 mg/dL (8.6-10.3); Carbon Dioxide 31 mEq/L (23-29); Chloride 104 mEq/L (98-107); Glucose 112 mg/dL (70-105); Osmolality,Calculated 289 (280-300); Potassium 3.7 mEq/L (3.5-5.1); Sodium 139 mEq/L (136-145); eGFR For African Americans > 60 (> 60); eGFR For Non-African Americans > 60 (> 60)
[2019-03-11] MEDS: Cyanocobalamin (B-12) 1,000 MCG TABLET PO SCH (08:38)
[2019-03-11] MEDS: Cholecalciferol (D-3) 1,000 UNIT (25MCG) TABLET PO SCH (08:39)
[2019-03-11] MEDS: Pantoprazole 40 MG VIAL IVP SCH (08:39)
[2019-03-11] MEDS: Carbidopa/Levodopa 25/250 TABLET PO SCH ×3 (08:39→17:35)
[2019-03-11] MEDS: Insulin LISPRO 300 UNITS/3 ML VIAL SQ SCH ×4 (08:39→20:58)
[2019-03-11] MEDS: Multivit/Ca/Min/Fe/FA 1 TAB TABLET PO SCH (08:39)
[2019-03-11] MEDS: Piperacillin/Tazobactam 3.375 GM in 0.9 % Sodium Chloride Mini Bag 100 ML IVPB SCH ×3 (08:40→23:18)
[2019-03-11] MEDS ORDERED: *HR* Warfarin 3 MG TABLET PO ONE (18:00)
[2019-03-11] MEDS: Carbidopa/Levodopa ER 50/200 TABLET PO SCH (20:54)
[2019-03-12 01:08] LABS: INR 1.5; Prothrombin Time 17.4 Seconds (9.4-12.1)
[2019-03-12] MEDS: 0.9 % Sodium Chloride 1,000 ML IVC SCH (03:17)
[2019-03-12] MEDS: Insulin LISPRO 300 UNITS/3 ML VIAL SQ SCH ×2 (08:20→12:33)
[2019-03-12] MEDS: Cyanocobalamin (B-12) 1,000 MCG TABLET PO SCH (08:25)
[2019-03-12] MEDS: Cholecalciferol (D-3) 1,000 UNIT (25MCG) TABLET PO SCH (08:26)
[2019-03-12] MEDS: Multivit/Ca/Min/Fe/FA 1 TAB TABLET PO SCH (08:27)
[2019-03-12] MEDS: Pantoprazole 40 MG VIAL IVP SCH (08:28)
[2019-03-12] MEDS: Piperacillin/Tazobactam 3.375 GM in 0.9 % Sodium Chloride Mini Bag 100 ML IVPB SCH (08:29)
[2019-03-12] MEDS: Carbidopa/Levodopa 25/250 TABLET PO SCH ×2 (08:31→13:08)
[2019-03-12] MEDS ORDERED: Ertapenem 1,000 MG in 0.9 % Sodium Chloride Mini Bag 100 ML IVPB SCH (11:19)
[2019-03-12 12:09] VITALS: BP 91/55
[2019-03-12] MEDS ORDERED: *HR* Warfarin 3 MG TABLET PO ONE (18:00)
== END 2019-03-12 15:40 | DRG 690 ==
LOC: 3BNU 09:33 → EMEROOARM 09:33 → 3BNU 14:02
PROVIDERS: ADMIT Student in an Organized Health Care Education/Training Program; ATTEND Student in an Organized Health Care Education/Training Program

== ENCOUNTER 2019-04-26 14:41 | Inpatient (IN) ==
[2019-04-26 16:41] LABS: Bilirubin,Urine Negative (Negative); Blood,Urine Large (Negative); Clarity,Urine Cloudy (Clear); Color,Urine Yellow (Yellow); Glucose,Urine (UA) 500 mg/dL (Normal); Ketones,Urine Negative (Negative); Leukocyte Esterase,Urine Large (Negative); Nitrite,Urine Positive (Negative); PH,Urine 6.5 pH Units (5.0-8.0); Protein,Urine Trace mg/dL (Neg-Trace); Specific Gravity,Urine 1.025 (1.010-1.025); Urobilinogen,Urine Normal (Normal)
[2019-04-26 16:43] LABS: Bacteria,Urine Many per hpf (None-Few); Hyaline Casts,Urine None Seen per lpf (None-Few); RBC,Urine TNTC per hpf (0-3); Squamous Epithelial Cell,Urine Many per lpf (None-Few); WBC,Urine TNTC per hpf (0-3)
[2019-04-26] MEDS ORDERED: Ertapenem 1,000 MG in 0.9 % Sodium Chloride Mini Bag 100 ML IVPB ONE (16:55)
[2019-04-26 17:32] LABS: Basophils % 0.4 %; Eosinophils # 0.2 K/mcL (0.0-0.6); Hematocrit 37.1 % (37.5-50.1); Hemoglobin 11.9 g/dL (12.9-16.9); Immature Granulocytes % 0.3 % (0-4); Lymphocytes # 2.3 K/mcL (0.6-4.6); Lymphocytes % 30.9 %; Mean Corpuscular HGB Conc 32.1 g/dL (31.6-35.5); Mean Corpuscular Hemoglobin 29.7 pg (28.0-33.3); Mean Corpuscular Volume 92.5 fL (83.0-100.0); Mean Platelet Volume 9.5 fL (9.4-12.4); Monocytes # 0.7 K/mcL (0.0-1.3); Monocytes % 9.9 %; Neutrophils # 4.2 K/mcL (1.6-8.9); Platelet Count 188 K/mcL (140-400); Red Blood Count 4.01 M/mcL (4.19-5.50); Red Cell Distribution Width 13.2 % (11.5-14.5); Segmented Neutrophils % 56.5 %; White Blood Count 7.5 K/mcL (4.3-11.1)
[2019-04-26 17:55] LABS: BUN/Creatinine Ratio 36 (6-26); Blood Urea Nitrogen 22 mg/dL (8-23); Carbon Dioxide 29 mEq/L (23-29); Chloride 101 mEq/L (98-107); Glucose 142 mg/dL (70-105); Osmolality,Calculated 288 (280-300); Sodium 136 mEq/L (136-145); Troponin I < 0.03 ng/mL (< 0.04); eGFR For African Americans > 60 (> 60); eGFR For Non-African Americans > 60 (> 60)
[2019-04-26] MEDS ORDERED: Naloxone 0.4 MG/ML INJ IVP PRN (21:59)
[2019-04-26] MEDS ORDERED: *HR* Dextrose 50 % in Water (Syg) 50 ML SYRINGE IVP PRN (22:04)
[2019-04-26] MEDS ORDERED: D5% in Water 1,000 ML IVC PRN (22:04)
[2019-04-26] MEDS ORDERED: Dextrose Gel 15 GM/37.5 ML TUBE PO PRN ×2 (22:04)
[2019-04-27 01:08] LABS: Basophils % 0.3 %; Eosinophils # 0.2 K/mcL (0.0-0.6); Eosinophils % 1.8 %; Hemoglobin 12.3 g/dL (12.9-16.9); Immature Granulocytes % 0.3 % (0-4); Immature Reticulocyte % 11.1 % (11.0-38.0); Lymphocytes # 2.8 K/mcL (0.6-4.6); Lymphocytes % 26.4 %; Mean Corpuscular HGB Conc 33.2 g/dL (31.6-35.5); Mean Corpuscular Hemoglobin 30.2 pg (28.0-33.3); Mean Corpuscular Volume 90.9 fL (83.0-100.0); Mean Platelet Volume 9.6 fL (9.4-12.4); Monocytes # 0.9 K/mcL (0.0-1.3); Monocytes % 8.2 %; Neutrophils # 6.6 K/mcL (1.6-8.9); Platelet Count 196 K/mcL (140-400); Red Blood Count 4.07 M/mcL (4.19-5.50); Red Cell Distribution Width 13.2 % (11.5-14.5); Retculocyte # 0.04 M/mcL (0.05-0.10); White Blood Count 10.4 K/mcL (4.3-11.1)
[2019-04-27 01:13] LABS: INR 2.8; Prothrombin Time 31.3 Seconds (9.4-12.1)
[2019-04-27 01:46] LABS: Folate 9.9 ng/mL (3.0-16.0)
[2019-04-27 02:00] LABS: % Iron Saturation 14 % (20-55); Alanine Aminotransferase < 3 Units/L (7-52); Albumin 3.7 g/dL (3.5-5.7); Albumin/Globulin Ratio 1.5 (1.1-2.2); Alkaline Phosphatase 31 Units/L (34-104); Aspartate Amino Transferase 12 Units/L (13-39); BUN/Creatinine Ratio 28 (6-26); Bilirubin,Total 0.3 mg/dL (0.3-1.0); Blood Urea Nitrogen 18 mg/dL (8-23); Calcium 8.9 mg/dL (8.6-10.3); Carbon Dioxide 28 mEq/L (23-29); Chloride 104 mEq/L (98-107); Chol/HDL Ratio 4.4 (0-4.9); Cholesterol 151 mg/dL (< 200); Ferritin 35 ng/mL (20-250); Globulin 2.4 g/dL (2.4-3.5); Glucose 126 mg/dL (70-105); HDL Cholesterol 34 mg/dL (40-59); Iron 40 mcg/dL (65-175); LDL Cholesterol,Calculated 95 mg/dL (0-99); Magnesium 1.8 mg/dL (1.6-2.6); Osmolality,Calculated 287 (280-300); Phosphorous 2.7 mg/dL (2.7-4.5); Potassium 3.8 mEq/L (3.5-5.1); Sodium 137 mEq/L (136-145); Total Protein 6.1 g/dL (6.4-8.9); Transferrin 201 mg/dL (203-362); Triglycerides 108 mg/dL (< 150); Troponin I < 0.03 ng/mL (< 0.04); eGFR For African Americans > 60 (> 60); eGFR For Non-African Americans > 60 (> 60)
[2019-04-27] MEDS ORDERED: *HR* Heparin 5,000 UNIT/ML VIAL SQ SCH (06:00)
[2019-04-27] MEDS: Insulin LISPRO 300 UNITS/3 ML VIAL SQ SCH ×4 (08:55→20:14)
[2019-04-27] MEDS ORDERED: Ertapenem 1,000 MG in 0.9 % Sodium Chloride Mini Bag 100 ML IVPB SCH (09:00)
[2019-04-27] MEDS: Carbidopa/Levodopa 25/250 TABLET PO SCH (17:56)
[2019-04-27] MEDS: *HR* Warfarin 3 MG TABLET PO SCH (17:56)
[2019-04-27] MEDS ORDERED: Insulin LISPRO 300 UNITS/3 ML VIAL SQ SCH (18:00)
[2019-04-27] MEDS: Carbidopa/Levodopa ER 50/200 TABLET PO SCH (20:18)
[2019-04-28 01:39] LABS: Basophils % 0.3 %; Eosinophils % 0.3 %; Hematocrit 38.9 % (37.5-50.1); Hemoglobin 13.1 g/dL (12.9-16.9); Immature Granulocytes % 0.3 % (0-4); Lymphocytes # 1.9 K/mcL (0.6-4.6); Lymphocytes % 15.8 %; Mean Corpuscular HGB Conc 33.7 g/dL (31.6-35.5); Mean Corpuscular Hemoglobin 30.2 pg (28.0-33.3); Mean Corpuscular Volume 89.6 fL (83.0-100.0); Mean Platelet Volume 9.6 fL (9.4-12.4); Monocytes # 0.9 K/mcL (0.0-1.3); Neutrophils # 8.9 K/mcL (1.6-8.9); Platelet Count 202 K/mcL (140-400); Red Blood Count 4.34 M/mcL (4.19-5.50); Red Cell Distribution Width 13.2 % (11.5-14.5); Segmented Neutrophils % 75.3 %; White Blood Count 11.8 K/mcL (4.3-11.1)
[2019-04-28 01:59] LABS: BUN/Creatinine Ratio 28 (6-26); Blood Urea Nitrogen 20 mg/dL (8-23); Calcium 9.3 mg/dL (8.6-10.3); Carbon Dioxide 28 mEq/L (23-29); Chloride 103 mEq/L (98-107); Glucose 145 mg/dL (70-105); Osmolality,Calculated 285 (280-300); Potassium 4.2 mEq/L (3.5-5.1); Sodium 135 mEq/L (136-145); eGFR For African Americans > 60 (> 60); eGFR For Non-African Americans > 60 (> 60)
[2019-04-28] MEDS ORDERED: METFORMIN HCL 500 MG PO SCH (08:00)
[2019-04-28] MEDS: Insulin LISPRO 300 UNITS/3 ML VIAL SQ SCH ×4 (08:39→21:38)
[2019-04-28] MEDS: Cholecalciferol (D-3) 1,000 UNIT (25MCG) TABLET PO SCH (08:40)
[2019-04-28] MEDS: Cyanocobalamin (B-12) 1,000 MCG TABLET PO SCH (08:41)
[2019-04-28] MEDS: Carbidopa/Levodopa 25/250 TABLET PO SCH ×3 (08:45→16:49)
[2019-04-28] MEDS: *HR* Warfarin 3 MG TABLET PO SCH (16:50)
[2019-04-28] MEDS: Carbidopa/Levodopa ER 50/200 TABLET PO SCH (21:46)
[2019-04-29 07:00] LABS: Basophils % 0.4 %; Eosinophils # 0.2 K/mcL (0.0-0.6); Eosinophils % 2.9 %; Hematocrit 40.9 % (37.5-50.1); Hemoglobin 13.4 g/dL (12.9-16.9); Immature Granulocytes % 0.6 % (0-4); Lymphocytes # 2.4 K/mcL (0.6-4.6); Lymphocytes % 35.2 %; Mean Corpuscular HGB Conc 32.8 g/dL (31.6-35.5); Mean Corpuscular Hemoglobin 29.8 pg (28.0-33.3); Mean Corpuscular Volume 91.1 fL (83.0-100.0); Mean Platelet Volume 9.4 fL (9.4-12.4); Monocytes # 0.8 K/mcL (0.0-1.3); Monocytes % 11.6 %; Neutrophils # 3.4 K/mcL (1.6-8.9); Platelet Count 192 K/mcL (140-400); Red Blood Count 4.49 M/mcL (4.19-5.50); Red Cell Distribution Width 13.2 % (11.5-14.5); Segmented Neutrophils % 49.3 %; White Blood Count 6.9 K/mcL (4.3-11.1)
[2019-04-29 07:20] LABS: BUN/Creatinine Ratio 30 (6-26); Blood Urea Nitrogen 21 mg/dL (8-23); Calcium 9.5 mg/dL (8.6-10.3); Carbon Dioxide 29 mEq/L (23-29); Chloride 100 mEq/L (98-107); Glucose 117 mg/dL (70-105); Osmolality,Calculated 290 (280-300); Sodium 138 mEq/L (136-145); eGFR For African Americans > 60 (> 60); eGFR For Non-African Americans > 60 (> 60)
[2019-04-29] MEDS: Cholecalciferol (D-3) 1,000 UNIT (25MCG) TABLET PO SCH (09:25)
[2019-04-29] MEDS: Insulin LISPRO 300 UNITS/3 ML VIAL SQ SCH ×5 (09:26→20:33)
[2019-04-29] MEDS: Carbidopa/Levodopa 25/250 TABLET PO SCH ×3 (09:26→18:16)
[2019-04-29] MEDS: Cyanocobalamin (B-12) 1,000 MCG TABLET PO SCH (09:26)
[2019-04-29 17:49] LABS: Bilirubin,Urine Negative (Negative); Blood,Urine Negative (Negative); Clarity,Urine Cloudy (Clear); Color,Urine Yellow (Yellow); Glucose,Urine (UA) 250 mg/dL (Normal); Ketones,Urine Negative (Negative); Leukocyte Esterase,Urine Moderate (Negative); Nitrite,Urine Negative (Negative); PH,Urine 5.5 pH Units (5.0-8.0); Protein,Urine Negative (Neg-Trace); Specific Gravity,Urine 1.028 (1.010-1.025); Urobilinogen,Urine Normal (Normal)
[2019-04-29 17:51] LABS: Squamous Epithelial Cell,Urine Many per lpf (None-Few); WBC,Urine 15-30 per hpf (0-3)
[2019-04-29 18:02] LABS: RBC,Urine 0-3 per hpf (0-3)
[2019-04-29 18:03] LABS: Bacteria,Urine Few per hpf (None-Few); Hyaline Casts,Urine Few per lpf (None-Few); Mucus,Urine Moderate per lpf (Few); Yeast,Urine Many per hpf (None Seen)
[2019-04-29] MEDS: *HR* Warfarin 3 MG TABLET PO SCH (18:16)
[2019-04-29] MEDS: Carbidopa/Levodopa ER 50/200 TABLET PO SCH (20:31)
[2019-04-30] MEDS: Cyanocobalamin (B-12) 1,000 MCG TABLET PO SCH (08:53)
[2019-04-30] MEDS: Insulin LISPRO 300 UNITS/3 ML VIAL SQ SCH ×3 (08:54→17:42)
[2019-04-30] MEDS: Cholecalciferol (D-3) 1,000 UNIT (25MCG) TABLET PO SCH (08:54)
[2019-04-30] MEDS: Carbidopa/Levodopa 25/250 TABLET PO SCH ×3 (08:58→17:40)
[2019-04-30 14:44] VITALS: BP 127/64
[2019-04-30] MEDS: *HR* Warfarin 3 MG TABLET PO SCH (17:40)
== END 2019-04-30 18:12 | DRG 690 ==
LOC: EMEROOARM 14:41 → 3BNU 14:41
PROVIDERS: ADMIT Internal Medicine; ATTEND Internal Medicine

== ENCOUNTER 2019-05-16 20:01 | Inpatient (IN) ==
[2019-05-16 20:53] LABS: Basophils % 0.2 %; Eosinophils % 0.1 %; Hematocrit 38.2 % (37.5-50.1); Immature Granulocytes % 0.4 % (0-4); Lymphocytes % 7.3 %; Mean Corpuscular Hemoglobin 30.1 pg (28.0-33.3); Mean Corpuscular Volume 88.4 fL (83.0-100.0); Mean Platelet Volume 9.6 fL (9.4-12.4); Monocytes # 1.1 K/mcL (0.0-1.3); Monocytes % 8.7 %; Neutrophils # 10.9 K/mcL (1.6-8.9); Platelet Count 183 K/mcL (140-400); Red Blood Count 4.32 M/mcL (4.19-5.50); Red Cell Distribution Width 13.3 % (11.5-14.5); Segmented Neutrophils % 83.3 %; White Blood Count 13.1 K/mcL (4.3-11.1)
[2019-05-16 21:09] LABS: Alanine Aminotransferase 3 Units/L (7-52); Albumin/Globulin Ratio 1.6 (1.1-2.2); Alkaline Phosphatase 33 Units/L (34-104); Aspartate Amino Transferase 12 Units/L (13-39); BUN/Creatinine Ratio 31 (6-26); Bilirubin,Total 0.6 mg/dL (0.3-1.0); Blood Urea Nitrogen 22 mg/dL (8-23); Calcium 8.8 mg/dL (8.6-10.3); Carbon Dioxide 26 mEq/L (23-29); Chloride 99 mEq/L (98-107); Globulin 2.5 g/dL (2.4-3.5); Glucose 240 mg/dL (70-105); Osmolality,Calculated 291 (280-300); Sodium 135 mEq/L (136-145); Total Protein 6.5 g/dL (6.4-8.9); eGFR For African Americans > 60 (> 60); eGFR For Non-African Americans > 60 (> 60)
[2019-05-16 21:17] LABS: Bilirubin,Urine Negative (Negative); Blood,Urine Moderate (Negative); Clarity,Urine Cloudy (Clear); Color,Urine Yellow (Yellow); Glucose,Urine (UA) 500 mg/dL (Normal); Ketones,Urine Trace mg/dL (Negative); Leukocyte Esterase,Urine Large (Negative); Nitrite,Urine Positive (Negative); Protein,Urine Trace mg/dL (Neg-Trace); Specific Gravity,Urine 1.023 (1.010-1.025); Urobilinogen,Urine Normal (Normal)
[2019-05-16 21:18] LABS: Bacteria,Urine Many per hpf (None-Few); RBC,Urine 0-3 per hpf (0-3); Squamous Epithelial Cell,Urine Many per lpf (None-Few)
[2019-05-16 21:36] LABS: Troponin I < 0.03 ng/mL (< 0.04)
[2019-05-16] MEDS ORDERED: Ertapenem 1,000 MG in 0.9 % Sodium Chloride Mini Bag 100 ML IVPB ONE (21:53)
[2019-05-16] MEDS ORDERED: Acetaminophen 325 MG TABLET PO ONE (22:04)
[2019-05-16] MEDS ORDERED: Acetaminophen 650 MG RECTAL SUPP RC ONE (22:33)
[2019-05-16] MEDS ORDERED: Ondansetron 4 MG/2 ML VIAL IVP PRN (22:40)
[2019-05-16] MEDS ORDERED: *HR* Dextrose 50 % in Water (Syg) 50 ML SYRINGE IVP PRN (22:43)
[2019-05-16] MEDS ORDERED: D5% in Water 1,000 ML IVC PRN (22:43)
[2019-05-16] MEDS ORDERED: Dextrose Gel 15 GM/37.5 ML TUBE PO PRN ×2 (22:43)
[2019-05-17] MEDS: 0.9 % Sodium Chloride 1,000 ML IVC SCH ×2 (01:11→12:58)
[2019-05-17 06:21] LABS: Basophils % 0.2 %; Eosinophils # 0.1 K/mcL (0.0-0.6); Eosinophils % 0.5 %; Hematocrit 36.5 % (37.5-50.1); Hemoglobin 11.8 g/dL (12.9-16.9); Immature Granulocytes % 0.4 % (0-4); Lymphocytes # 1.2 K/mcL (0.6-4.6); Lymphocytes % 10.3 %; Mean Corpuscular HGB Conc 32.3 g/dL (31.6-35.5); Mean Corpuscular Hemoglobin 29.9 pg (28.0-33.3); Mean Corpuscular Volume 92.6 fL (83.0-100.0); Mean Platelet Volume 9.6 fL (9.4-12.4); Monocytes # 1.3 K/mcL (0.0-1.3); Monocytes % 10.8 %; Neutrophils # 9.2 K/mcL (1.6-8.9); Platelet Count 159 K/mcL (140-400); Red Blood Count 3.94 M/mcL (4.19-5.50); Red Cell Distribution Width 13.2 % (11.5-14.5); Segmented Neutrophils % 77.8 %; White Blood Count 11.8 K/mcL (4.3-11.1)
[2019-05-17 06:23] LABS: INR 1.6; Prothrombin Time 17.8 Seconds (9.4-12.1)
[2019-05-17 06:44] LABS: BUN/Creatinine Ratio 25 (6-26); Blood Urea Nitrogen 19 mg/dL (8-23); Calcium 8.5 mg/dL (8.6-10.3); Carbon Dioxide 31 mEq/L (23-29); Chloride 101 mEq/L (98-107); Glucose 160 mg/dL (70-105); Osmolality,Calculated 290 (280-300); Sodium 137 mEq/L (136-145); eGFR For African Americans > 60 (> 60); eGFR For Non-African Americans > 60 (> 60)
[2019-05-17 07:07] LABS: Estimated Average Glucose 166 mg/dl
[2019-05-17] MEDS: Insulin LISPRO 300 UNITS/3 ML VIAL SQ SCH ×3 (07:49→16:44)
[2019-05-17] MEDS: Lactobacillus 1 EACH CAP.SPRINK PO SCH ×2 (07:50→22:49)
[2019-05-17] MEDS: Cyanocobalamin (B-12) 1,000 MCG TABLET PO SCH (07:50)
[2019-05-17] MEDS: Cholecalciferol (D-3) 1,000 UNIT (25MCG) TABLET PO SCH (07:50)
[2019-05-17] MEDS: Carbidopa/Levodopa 25/250 TABLET PO SCH ×3 (07:53→17:10)
[2019-05-17] MEDS: Ertapenem 1,000 MG in 0.9 % Sodium Chloride Mini Bag 100 ML IVPB SCH (17:10)
[2019-05-17] MEDS ORDERED: Warfarin perPT PO PRN (18:00)
[2019-05-17] MEDS ORDERED: *HR* Warfarin 3 MG TABLET PO ONE (18:00)
[2019-05-17 18:38] LABS: INR 1.5; Prothrombin Time 16.5 Seconds (9.4-12.1)
[2019-05-17 18:41] LABS: Activated Partial Thrombo Time 27.2 Seconds (26.0-36.0)
[2019-05-17] MEDS ORDERED: Isovue-370 500 ML BOTTLE IVP ONE (19:13)
[2019-05-17] MEDS ORDERED: CARBIDOPA LEVO PO SCH (20:00)
[2019-05-17] MEDS ORDERED: Carbidopa/Levodopa ER 50/200 TABLET PO SCH (21:45)
[2019-05-17] MEDS: CARBIDOPA PO SCH (22:49)
[2019-05-17] MEDS: LEVODOPA PO SCH (22:49)
[2019-05-18 06:23] LABS: Basophils % 0.3 %; Eosinophils # 0.2 K/mcL (0.0-0.6); Eosinophils % 2.2 %; Hematocrit 34.1 % (37.5-50.1); Hemoglobin 11.2 g/dL (12.9-16.9); Immature Granulocytes % 0.4 % (0-4); Lymphocytes # 1.5 K/mcL (0.6-4.6); Lymphocytes % 20.6 %; Mean Corpuscular HGB Conc 32.8 g/dL (31.6-35.5); Mean Corpuscular Hemoglobin 29.8 pg (28.0-33.3); Mean Corpuscular Volume 90.7 fL (83.0-100.0); Mean Platelet Volume 9.4 fL (9.4-12.4); Monocytes # 1.1 K/mcL (0.0-1.3); Monocytes % 15.7 %; Neutrophils # 4.4 K/mcL (1.6-8.9); Platelet Count 153 K/mcL (140-400); Red Blood Count 3.76 M/mcL (4.19-5.50); Red Cell Distribution Width 13.4 % (11.5-14.5); Segmented Neutrophils % 60.8 %; White Blood Count 7.3 K/mcL (4.3-11.1)
[2019-05-18 06:31] LABS: INR 1.3; Prothrombin Time 14.6 Seconds (9.4-12.1)
[2019-05-18 06:49] LABS: BUN/Creatinine Ratio 19 (6-26); Blood Urea Nitrogen 15 mg/dL (8-23); Calcium 8.5 mg/dL (8.6-10.3); Carbon Dioxide 30 mEq/L (23-29); Chloride 102 mEq/L (98-107); Glucose 133 mg/dL (70-105); Osmolality,Calculated 291 (280-300); Potassium 4.8 mEq/L (3.5-5.1); Sodium 139 mEq/L (136-145); eGFR For African Americans > 60 (> 60); eGFR For Non-African Americans > 60 (> 60)
[2019-05-18] MEDS: Insulin LISPRO 300 UNITS/3 ML VIAL SQ SCH ×3 (09:30→16:51)
[2019-05-18] MEDS: Cyanocobalamin (B-12) 1,000 MCG TABLET PO SCH (10:01)
[2019-05-18] MEDS: Cholecalciferol (D-3) 1,000 UNIT (25MCG) TABLET PO SCH (10:01)
[2019-05-18] MEDS: Carbidopa/Levodopa 25/250 TABLET PO SCH ×3 (10:01→16:43)
[2019-05-18] MEDS: Lactobacillus 1 EACH CAP.SPRINK PO SCH ×2 (10:03→19:55)
[2019-05-18] MEDS ORDERED: Ringers Solution, Lactated 1,000 ML IVC SCH (10:45)
[2019-05-18] MEDS: Ertapenem 1,000 MG in 0.9 % Sodium Chloride Mini Bag 100 ML IVPB SCH (16:43)
[2019-05-18] MEDS ORDERED: *HR* Warfarin 3 MG TABLET PO ONE (18:00)
[2019-05-18] MEDS: LEVODOPA PO SCH (19:55)
[2019-05-18] MEDS: CARBIDOPA PO SCH (19:55)
[2019-05-19 06:11] LABS: Basophils % 0.3 %; Eosinophils # 0.2 K/mcL (0.0-0.6); Eosinophils % 3.3 %; Hematocrit 31.3 % (37.5-50.1); Hemoglobin 10.2 g/dL (12.9-16.9); Immature Granulocytes % 0.2 % (0-4); Lymphocytes # 1.7 K/mcL (0.6-4.6); Lymphocytes % 29.5 %; Mean Corpuscular HGB Conc 32.6 g/dL (31.6-35.5); Mean Corpuscular Hemoglobin 29.7 pg (28.0-33.3); Mean Corpuscular Volume 91.3 fL (83.0-100.0); Mean Platelet Volume 9.6 fL (9.4-12.4); Monocytes % 16.4 %; Neutrophils # 2.9 K/mcL (1.6-8.9); Platelet Count 149 K/mcL (140-400); Red Blood Count 3.43 M/mcL (4.19-5.50); Red Cell Distribution Width 13.2 % (11.5-14.5); Segmented Neutrophils % 50.3 %; White Blood Count 5.8 K/mcL (4.3-11.1)
[2019-05-19 06:12] LABS: INR 1.3; Prothrombin Time 14.3 Seconds (9.4-12.1)
[2019-05-19 06:29] LABS: BUN/Creatinine Ratio 28 (6-26); Blood Urea Nitrogen 19 mg/dL (8-23); Calcium 8.4 mg/dL (8.6-10.3); Carbon Dioxide 29 mEq/L (23-29); Chloride 103 mEq/L (98-107); Glucose 135 mg/dL (70-105); Osmolality,Calculated 290 (280-300); Sodium 138 mEq/L (136-145); eGFR For African Americans > 60 (> 60); eGFR For Non-African Americans > 60 (> 60)
[2019-05-19] MEDS: Lactobacillus 1 EACH CAP.SPRINK PO SCH ×2 (09:32→22:18)
[2019-05-19] MEDS: Cyanocobalamin (B-12) 1,000 MCG TABLET PO SCH (09:32)
[2019-05-19] MEDS: Carbidopa/Levodopa 25/250 TABLET PO SCH ×3 (09:32→18:12)
[2019-05-19] MEDS: Cholecalciferol (D-3) 1,000 UNIT (25MCG) TABLET PO SCH (09:32)
[2019-05-19] MEDS: Insulin LISPRO 300 UNITS/3 ML VIAL SQ SCH ×3 (09:33→18:12)
[2019-05-19] MEDS ORDERED: *HR* Warfarin 3 MG TABLET PO ONE (18:00)
[2019-05-19] MEDS: Ertapenem 1,000 MG in 0.9 % Sodium Chloride Mini Bag 100 ML IVPB SCH (18:13)
[2019-05-19] MEDS: LEVODOPA PO SCH (22:18)
[2019-05-19] MEDS: CARBIDOPA PO SCH (22:18)
[2019-05-20 06:48] LABS: INR 1.2
[2019-05-20 07:08] LABS: Hematocrit 32.7 % (37.5-50.1); Hemoglobin 10.9 g/dL (12.9-16.9); Mean Corpuscular HGB Conc 33.3 g/dL (31.6-35.5); Mean Corpuscular Volume 90.1 fL (83.0-100.0); Mean Platelet Volume 9.6 fL (9.4-12.4); Platelet Count 177 K/mcL (140-400); Red Blood Count 3.63 M/mcL (4.19-5.50); Red Cell Distribution Width 12.8 % (11.5-14.5)
[2019-05-20 07:27] LABS: BUN/Creatinine Ratio 21 (6-26); Blood Urea Nitrogen 15 mg/dL (8-23); Calcium 8.6 mg/dL (8.6-10.3); Carbon Dioxide 29 mEq/L (23-29); Chloride 100 mEq/L (98-107); Glucose 124 mg/dL (70-105); Osmolality,Calculated 286 (280-300); Potassium 3.9 mEq/L (3.5-5.1); Sodium 137 mEq/L (136-145); eGFR For African Americans > 60 (> 60); eGFR For Non-African Americans > 60 (> 60)
[2019-05-20] MEDS: Cyanocobalamin (B-12) 1,000 MCG TABLET PO SCH (09:33)
[2019-05-20] MEDS: Cholecalciferol (D-3) 1,000 UNIT (25MCG) TABLET PO SCH (09:33)
[2019-05-20] MEDS: Carbidopa/Levodopa 25/250 TABLET PO SCH ×3 (09:33→20:26)
[2019-05-20] MEDS: Lactobacillus 1 EACH CAP.SPRINK PO SCH ×2 (09:33→22:24)
[2019-05-20] MEDS: Insulin LISPRO 300 UNITS/3 ML VIAL SQ SCH ×3 (09:34→17:29)
[2019-05-20] MEDS ORDERED: *HR* Warfarin 5 MG TABLET PO ONE (18:00)
[2019-05-20] MEDS: Ertapenem 1,000 MG in 0.9 % Sodium Chloride Mini Bag 100 ML IVPB SCH (20:18)
[2019-05-20] MEDS: CARBIDOPA PO SCH (22:23)
[2019-05-20] MEDS: LEVODOPA PO SCH (22:23)
[2019-05-21 05:21] LABS: Basophils % 0.3 %; Eosinophils # 0.1 K/mcL (0.0-0.6); Eosinophils % 2.2 %; Hematocrit 35.4 % (37.5-50.1); Hemoglobin 11.7 g/dL (12.9-16.9); Immature Granulocytes % 0.2 % (0-4); Lymphocytes # 2.2 K/mcL (0.6-4.6); Lymphocytes % 33.8 %; Mean Corpuscular HGB Conc 33.1 g/dL (31.6-35.5); Mean Corpuscular Hemoglobin 29.6 pg (28.0-33.3); Mean Corpuscular Volume 89.6 fL (83.0-100.0); Mean Platelet Volume 9.3 fL (9.4-12.4); Monocytes # 0.7 K/mcL (0.0-1.3); Monocytes % 10.6 %; Neutrophils # 3.4 K/mcL (1.6-8.9); Platelet Count 204 K/mcL (140-400); Red Blood Count 3.95 M/mcL (4.19-5.50); Red Cell Distribution Width 12.8 % (11.5-14.5); Segmented Neutrophils % 52.9 %; White Blood Count 6.4 K/mcL (4.3-11.1)
[2019-05-21 05:24] LABS: INR 1.3; Prothrombin Time 15.3 Seconds (9.4-12.1)
[2019-05-21 05:38] LABS: BUN/Creatinine Ratio 20 (6-26); Blood Urea Nitrogen 13 mg/dL (8-23); Carbon Dioxide 29 mEq/L (23-29); Chloride 100 mEq/L (98-107); Glucose 114 mg/dL (70-105); Osmolality,Calculated 289 (280-300); Potassium 4.1 mEq/L (3.5-5.1); Sodium 139 mEq/L (136-145); eGFR For African Americans > 60 (> 60); eGFR For Non-African Americans > 60 (> 60)
[2019-05-21] MEDS: Insulin LISPRO 300 UNITS/3 ML VIAL SQ SCH ×3 (09:03→17:18)
[2019-05-21] MEDS: Carbidopa/Levodopa 25/250 TABLET PO SCH ×3 (09:18→17:17)
[2019-05-21] MEDS: Cholecalciferol (D-3) 1,000 UNIT (25MCG) TABLET PO SCH (09:18)
[2019-05-21] MEDS: Cyanocobalamin (B-12) 1,000 MCG TABLET PO SCH (09:18)
[2019-05-21] MEDS: Lactobacillus 1 EACH CAP.SPRINK PO SCH ×2 (09:18→20:45)
[2019-05-21] MEDS: Ertapenem 1,000 MG in 0.9 % Sodium Chloride Mini Bag 100 ML IVPB SCH (17:16)
[2019-05-21] MEDS ORDERED: *HR* Warfarin 5 MG TABLET PO ONE (18:00)
[2019-05-21] MEDS: CARBIDOPA PO SCH (20:45)
[2019-05-21] MEDS: LEVODOPA PO SCH (20:45)
[2019-05-22 06:10] LABS: INR 1.3; Prothrombin Time 15.3 Seconds (9.4-12.1)
[2019-05-22] MEDS: Insulin LISPRO 300 UNITS/3 ML VIAL SQ SCH ×2 (07:49→14:20)
[2019-05-22] MEDS: Lactobacillus 1 EACH CAP.SPRINK PO SCH (07:58)
[2019-05-22] MEDS: Carbidopa/Levodopa 25/250 TABLET PO SCH ×2 (07:59→14:20)
[2019-05-22] MEDS: Cholecalciferol (D-3) 1,000 UNIT (25MCG) TABLET PO SCH (07:59)
[2019-05-22] MEDS: Cyanocobalamin (B-12) 1,000 MCG TABLET PO SCH (07:59)
[2019-05-22] MEDS ORDERED: Ertapenem 1,000 MG in 0.9 % Sodium Chloride Mini Bag 100 ML IVPB SCH ×2 (10:46→15:00)
[2019-05-22 16:43] VITALS: BP 107/66
[2019-05-22] MEDS ORDERED: *HR* Warfarin 3 MG TABLET PO ONE (18:00)
[2019-05-23] MEDS ORDERED: Ertapenem 1,000 MG in 0.9 % Sodium Chloride Mini Bag 100 ML IVPB SCH (15:00)
== END 2019-05-22 16:56 | DRG 871 ==
LOC: EMEROOARM 20:01 → 3ANU 20:01 → SUATTDRO 22:12 → 3ANU 22:56 → SUATTDRO 05-18 16:07
PROVIDERS: ADMIT Student in an Organized Health Care Education/Training Program; ATTEND Internal Medicine

== ENCOUNTER 2021-08-07 10:32 | Inpatient (IN) ==
[2021-08-07] MEDS ORDERED: 0.9 % Sodium Chloride 1,000 ML IVC ONE (10:38)
[2021-08-07 11:09] LABS: Basophils % 0.1 %; Hematocrit 47.3 % (37.5-50.1); Hemoglobin 15.6 g/dL (12.9-16.9); Immature Granulocytes % 0.4 % (0-4); Lymphocytes # 0.7 K/mcL (0.6-4.6); Lymphocytes % 3.7 %; Mean Corpuscular Hemoglobin 30.5 pg (28.0-33.3); Mean Corpuscular Volume 92.4 fL (83.0-100.0); Mean Platelet Volume 10.1 fL (9.4-12.4); Monocytes # 1.1 K/mcL (0.0-1.3); Monocytes % 5.8 %; Neutrophils # 16.4 K/mcL (1.6-8.9); Platelet Count 207 K/mcL (140-400); Red Blood Count 5.12 M/mcL (4.19-5.50); Red Cell Distribution Width 12.8 % (11.5-14.5); White Blood Count 18.2 K/mcL (4.3-11.1)
[2021-08-07 11:16] LABS: Activated Partial Thrombo Time 47.4 Seconds (26.0-36.0)
[2021-08-07 11:18] LABS: INR 5.9; Prothrombin Time 64.6 Seconds (9.4-12.1)
[2021-08-07 11:28] LABS: BUN/Creatinine Ratio 38 (6-26); Blood Urea Nitrogen 30 mg/dL (8-23); Calcium 8.9 mg/dL (8.6-10.3); Carbon Dioxide 26 mEq/L (23-29); Chloride 100 mEq/L (98-107); Glucose 235 mg/dL (70-105); Osmolality,Calculated 302 (280-300); Potassium 4.1 mEq/L (3.5-5.1); Sodium 139 mEq/L (136-145); eGFR For African Americans > 60 (> 60); eGFR For Non-African Americans > 60 (> 60)
[2021-08-07] MEDS ORDERED: levoFLOXacin 750 MG/150 ML 750 MG/150 ML BAG IVPB ONE (11:28)
[2021-08-07 11:29] LABS: Troponin I < 0.03 ng/mL (< 0.04)
[2021-08-07] MEDS ORDERED: Naloxone 0.4 MG/ML INJ IVP PRN (14:07)
[2021-08-07] MEDS ORDERED: Ondansetron 4 MG/2 ML VIAL IVP PRN (14:07)
[2021-08-07] MEDS ORDERED: D5% in Water 1,000 ML IVC PRN (14:21)
[2021-08-07] MEDS ORDERED: *HR* Dextrose 50 % in Water (Syg) 50 ML SYRINGE IVP PRN (14:21)
[2021-08-07] MEDS ORDERED: Dextrose 4 GM Chewable Tablets PO PRN ×2 (14:21)
[2021-08-07] MEDS: Carbidopa/Levodopa 25/250 TABLET PO SCH (14:56)
[2021-08-07] MEDS: Ringers Solution, Lactated 1,000 ML IVC SCH (15:46)
[2021-08-07] MEDS: Insulin LISPRO 300 UNITS/3 ML VIAL SUBQ SCH (17:49)
[2021-08-07 18:27] LABS: INR 3.4; Prothrombin Time 37.4 Seconds (9.4-12.1)
[2021-08-07] MEDS: Carbidopa/Levodopa ER 50/200 TABLET PO SCH (21:03)
[2021-08-08] MEDS: Ringers Solution, Lactated 1,000 ML IVC SCH ×3 (00:49→20:06)
[2021-08-08 01:30] LABS: Basophils % 0.2 %; Hematocrit 41.2 % (37.5-50.1); Immature Granulocytes % 0.2 % (0-4); Lymphocytes % 7.6 %; Mean Corpuscular HGB Conc 33.3 g/dL (31.6-35.5); Mean Corpuscular Hemoglobin 30.5 pg (28.0-33.3); Mean Corpuscular Volume 91.8 fL (83.0-100.0); Mean Platelet Volume 10.3 fL (9.4-12.4); Monocytes # 1.1 K/mcL (0.0-1.3); Monocytes % 8.7 %; Neutrophils # 10.7 K/mcL (1.6-8.9); Platelet Count 183 K/mcL (140-400); Red Blood Count 4.49 M/mcL (4.19-5.50); Segmented Neutrophils % 83.3 %; White Blood Count 12.8 K/mcL (4.3-11.1)
[2021-08-08 01:32] LABS: Hemoglobin 13.7 g/dL (12.9-16.9)
[2021-08-08 01:43] LABS: INR 2.1; Prothrombin Time 23.4 Seconds (9.4-12.1)
[2021-08-08 01:53] LABS: Alanine Aminotransferase 4 Units/L (7-52); Albumin 3.6 g/dL (3.5-5.7); Albumin/Globulin Ratio 1.4 (1.1-2.2); Alkaline Phosphatase 22 Units/L (34-104); Aspartate Amino Transferase 15 Units/L (13-39); BUN/Creatinine Ratio 38 (6-26); Bilirubin,Total 1.1 mg/dL (0.3-1.0); Blood Urea Nitrogen 28 mg/dL (8-23); Calcium 8.6 mg/dL (8.6-10.3); Carbon Dioxide 28 mEq/L (23-29); Chloride 102 mEq/L (98-107); Globulin 2.5 g/dL (2.4-3.5); Glucose 213 mg/dL (70-105); Osmolality,Calculated 300 (280-300); Sodium 139 mEq/L (136-145); Total Protein 6.1 g/dL (6.4-8.9); eGFR For African Americans > 60 (> 60); eGFR For Non-African Americans > 60 (> 60)
[2021-08-08] MEDS: Insulin LISPRO 300 UNITS/3 ML VIAL SUBQ SCH ×4 (02:04→17:28)
[2021-08-08] MEDS: Carbidopa/Levodopa ER 50/200 TABLET PO SCH (09:33)
[2021-08-08] MEDS: Ampicillin/Sulbactam 1,500 MG in 0.9 % Sodium Chloride Mini Bag 100 ML IVPB SCH ×4 (09:35→23:30)
[2021-08-08] MEDS ORDERED: Metoclopramide 10 MG/2 ML VIAL IVP PRN (10:03)
[2021-08-08] MEDS ORDERED: Ringers Solution, Lactated 1,000 ML IVC SCH (11:30)
[2021-08-08] MEDS: Pantoprazole 40 MG VIAL IVP SCH ×2 (11:46→17:31)
[2021-08-08] MEDS ORDERED: *HR* Phytonadione 10 MG/ML AMPUL SQ ONE (11:47)
[2021-08-08] MEDS ORDERED: *HR* Metoprolol 5 MG/5 ML VIAL IVP PRN (11:53)
[2021-08-08] MEDS ORDERED: levoFLOXacin 750 MG/150 ML 750 MG/150 ML BAG IVPB SCH (12:00)
[2021-08-08] MEDS ORDERED: cefTRIAXone 1,000 MG in 0.9 % Sodium Chloride 10 ML IVP SCH (12:00)
[2021-08-08 12:03] LABS: Hematocrit 41.6 % (37.5-50.1); Hemoglobin 13.5 g/dL (12.9-16.9)
[2021-08-08] MEDS: Carbidopa/Levodopa 25/250 TABLET PO SCH ×2 (12:38→14:55)
[2021-08-08 18:00] LABS: Hematocrit 36.5 % (37.5-50.1)
[2021-08-09 00:30] LABS: Hematocrit 34.4 % (37.5-50.1); Hemoglobin 11.3 g/dL (12.9-16.9)
[2021-08-09] MEDS: Insulin LISPRO 300 UNITS/3 ML VIAL SUBQ SCH ×5 (00:39→23:48)
[2021-08-09 03:01] LABS: Basophils % 0.2 %; Eosinophils % 0.3 %; Hematocrit 33.6 % (37.5-50.1); Hemoglobin 10.9 g/dL (12.9-16.9); Immature Granulocytes % 0.2 % (0-4); Lymphocytes % 17.4 %; Mean Corpuscular HGB Conc 32.4 g/dL (31.6-35.5); Mean Corpuscular Hemoglobin 30.4 pg (28.0-33.3); Mean Corpuscular Volume 93.6 fL (83.0-100.0); Mean Platelet Volume 10.4 fL (9.4-12.4); Monocytes # 0.9 K/mcL (0.0-1.3); Monocytes % 14.8 %; Platelet Count 155 K/mcL (140-400); Red Blood Count 3.59 M/mcL (4.19-5.50); Red Cell Distribution Width 13.1 % (11.5-14.5); Segmented Neutrophils % 67.1 %
[2021-08-09 03:21] LABS: BUN/Creatinine Ratio 41 (6-26); Blood Urea Nitrogen 24 mg/dL (8-23); Calcium 8.2 mg/dL (8.6-10.3); Carbon Dioxide 30 mEq/L (23-29); Chloride 106 mEq/L (98-107); Glucose 117 mg/dL (70-105); Magnesium 1.7 mg/dL (1.6-2.6); Osmolality,Calculated 297 (280-300); Phosphorous 1.3 mg/dL (2.7-4.5); Potassium 3.5 mEq/L (3.5-5.1); Sodium 141 mEq/L (136-145); eGFR For African Americans > 60 (> 60); eGFR For Non-African Americans > 60 (> 60)
[2021-08-09] MEDS: Ampicillin/Sulbactam 1,500 MG in 0.9 % Sodium Chloride Mini Bag 100 ML IVPB SCH ×4 (06:50→23:57)
[2021-08-09] MEDS: Pantoprazole 40 MG VIAL IVP SCH ×2 (06:50→17:38)
[2021-08-09] MEDS ORDERED: Potassium Phosphate 44 MEQ in 0.9 % Sodium Chloride 250 ML IVPB ONE (08:05)
[2021-08-09] MEDS ORDERED: *HR* LORazepam 2 MG/ML VIAL IVP ONE (08:33)
[2021-08-09] MEDS: 0.9 % Sodium Chloride 1,000 ML IVC SCH ×2 (11:37→22:14)
[2021-08-10 05:07] LABS: Hematocrit 30.8 % (37.5-50.1); Hemoglobin 9.8 g/dL (12.9-16.9); Mean Corpuscular HGB Conc 31.8 g/dL (31.6-35.5); Mean Corpuscular Hemoglobin 30.2 pg (28.0-33.3); Mean Corpuscular Volume 94.8 fL (83.0-100.0); Mean Platelet Volume 9.9 fL (9.4-12.4); Platelet Count 144 K/mcL (140-400); Red Blood Count 3.25 M/mcL (4.19-5.50); Red Cell Distribution Width 13.1 % (11.5-14.5)
[2021-08-10 05:16] LABS: INR 1.3; Prothrombin Time 14.8 Seconds (9.4-12.1)
[2021-08-10] MEDS: Ampicillin/Sulbactam 1,500 MG in 0.9 % Sodium Chloride Mini Bag 100 ML IVPB SCH ×3 (05:24→16:58)
[2021-08-10] MEDS: Pantoprazole 40 MG VIAL IVP SCH ×2 (05:24→16:59)
[2021-08-10 05:27] LABS: BUN/Creatinine Ratio 33 (6-26); Blood Urea Nitrogen 16 mg/dL (8-23); Calcium 7.9 mg/dL (8.6-10.3); Carbon Dioxide 28 mEq/L (23-29); Chloride 110 mEq/L (98-107); Glucose 86 mg/dL (70-105); Osmolality,Calculated 298 (280-300); Potassium 3.7 mEq/L (3.5-5.1); Sodium 144 mEq/L (136-145); eGFR For African Americans > 60 (> 60); eGFR For Non-African Americans > 60 (> 60)
[2021-08-10] MEDS: Insulin LISPRO 300 UNITS/3 ML VIAL SUBQ SCH ×3 (05:41→16:26)
[2021-08-10] MEDS: Carbidopa/Levodopa 25/250 TABLET PO SCH ×2 (11:49→14:44)
[2021-08-10] MEDS: polyethylene glycoL 3350 17 GM POWD.PACK PO SCH (14:44)
[2021-08-10] MEDS ORDERED: Warfarin perPT PO PRN (18:00)
[2021-08-10] MEDS ORDERED: *HR* Warfarin 3 MG TABLET PO ONE (18:00)
[2021-08-10] MEDS ORDERED: Metoclopramide 10 MG/2 ML VIAL IVP ONE (18:39)
[2021-08-10] MEDS: Carbidopa/Levodopa ER 50/200 TABLET PO SCH (20:27)
[2021-08-11] MEDS: Insulin LISPRO 300 UNITS/3 ML VIAL SUBQ SCH ×5 (00:41→23:53)
[2021-08-11] MEDS: Ampicillin/Sulbactam 1,500 MG in 0.9 % Sodium Chloride Mini Bag 100 ML IVPB SCH ×5 (00:49→23:51)
[2021-08-11 02:49] LABS: Hematocrit 29.9 % (37.5-50.1); Hemoglobin 9.7 g/dL (12.9-16.9); Mean Corpuscular HGB Conc 32.4 g/dL (31.6-35.5); Mean Corpuscular Hemoglobin 30.6 pg (28.0-33.3); Mean Corpuscular Volume 94.3 fL (83.0-100.0); Mean Platelet Volume 9.9 fL (9.4-12.4); Platelet Count 147 K/mcL (140-400); Red Blood Count 3.17 M/mcL (4.19-5.50); Red Cell Distribution Width 12.6 % (11.5-14.5); White Blood Count 5.8 K/mcL (4.3-11.1)
[2021-08-11 02:57] LABS: BUN/Creatinine Ratio 21 (6-26); Blood Urea Nitrogen 10 mg/dL (8-23); Carbon Dioxide 29 mEq/L (23-29); Chloride 104 mEq/L (98-107); Glucose 87 mg/dL (70-105); Osmolality,Calculated 286 (280-300); Potassium 3.6 mEq/L (3.5-5.1); Sodium 139 mEq/L (136-145); eGFR For African Americans > 60 (> 60); eGFR For Non-African Americans > 60 (> 60)
[2021-08-11 03:04] LABS: INR 1.3
[2021-08-11] MEDS: Pantoprazole 40 MG VIAL IVP SCH ×2 (05:38→18:16)
[2021-08-11] MEDS: Carbidopa/Levodopa ER 50/200 TABLET PO SCH ×2 (08:19→20:57)
[2021-08-11] MEDS: polyethylene glycoL 3350 17 GM POWD.PACK PO SCH (08:22)
[2021-08-11] MEDS: Carbidopa/Levodopa 25/250 TABLET PO SCH ×2 (12:16→14:29)
[2021-08-11] MEDS ORDERED: *HR* Warfarin 3 MG TABLET PO ONE (18:00)
[2021-08-12 03:09] LABS: Hematocrit 31.6 % (37.5-50.1); Hemoglobin 10.3 g/dL (12.9-16.9); Mean Corpuscular HGB Conc 32.6 g/dL (31.6-35.5); Mean Corpuscular Hemoglobin 29.9 pg (28.0-33.3); Mean Corpuscular Volume 91.9 fL (83.0-100.0); Platelet Count 179 K/mcL (140-400); Red Blood Count 3.44 M/mcL (4.19-5.50); Red Cell Distribution Width 12.4 % (11.5-14.5); White Blood Count 8.1 K/mcL (4.3-11.1)
[2021-08-12 03:21] LABS: BUN/Creatinine Ratio 16 (6-26); Blood Urea Nitrogen 8 mg/dL (8-23); Calcium 8.1 mg/dL (8.6-10.3); Carbon Dioxide 31 mEq/L (23-29); Chloride 100 mEq/L (98-107); Glucose 133 mg/dL (70-105); Magnesium 1.7 mg/dL (1.6-2.6); Osmolality,Calculated 282 (280-300); Phosphorous 2.5 mg/dL (2.7-4.5); Potassium 3.5 mEq/L (3.5-5.1); Sodium 136 mEq/L (136-145); eGFR For African Americans > 60 (> 60); eGFR For Non-African Americans > 60 (> 60)
[2021-08-12 03:35] LABS: INR 1.3; Prothrombin Time 14.9 Seconds (9.4-12.1)
[2021-08-12] MEDS ORDERED: 0.9 % Sodium Chloride 500 ML IVC ONE (03:40)
[2021-08-12] MEDS: Insulin LISPRO 300 UNITS/3 ML VIAL SUBQ SCH ×3 (06:07→17:25)
[2021-08-12] MEDS: Ampicillin/Sulbactam 1,500 MG in 0.9 % Sodium Chloride Mini Bag 100 ML IVPB SCH (06:08)
[2021-08-12] MEDS: Pantoprazole 40 MG VIAL IVP SCH (06:08)
[2021-08-12] MEDS: polyethylene glycoL 3350 17 GM POWD.PACK PO SCH (07:31)
[2021-08-12] MEDS: Carbidopa/Levodopa ER 50/200 TABLET PO SCH ×2 (07:32→22:01)
[2021-08-12] MEDS ORDERED: Metoclopramide 10 MG/2 ML VIAL IVP ONE (09:09)
[2021-08-12] MEDS: Carbidopa/Levodopa 25/250 TABLET PO SCH ×2 (11:27→14:59)
[2021-08-12] MEDS ORDERED: *HR* Warfarin 4 MG TABLET PO ONE (18:00)
[2021-08-13] MEDS: Insulin LISPRO 300 UNITS/3 ML VIAL SUBQ SCH ×4 (02:44→17:59)
[2021-08-13 06:39] LABS: INR 1.4; Prothrombin Time 16.1 Seconds (9.4-12.1)
[2021-08-13 07:41] LABS: Hemoglobin 10.9 g/dL (12.9-16.9); Mean Corpuscular Hemoglobin 30.1 pg (28.0-33.3); Mean Corpuscular Volume 91.2 fL (83.0-100.0); Platelet Count 187 K/mcL (140-400); Red Blood Count 3.62 M/mcL (4.19-5.50); Red Cell Distribution Width 12.7 % (11.5-14.5)
[2021-08-13] MEDS: Carbidopa/Levodopa ER 50/200 TABLET PO SCH ×2 (09:42→21:14)
[2021-08-13] MEDS: Cholecalciferol (D-3) 1,000 UNIT (25MCG) TABLET PO SCH (09:42)
[2021-08-13] MEDS: polyethylene glycoL 3350 17 GM POWD.PACK PO SCH (09:42)
[2021-08-13] MEDS: *HR* Metformin 500 MG TABLET PO SCH (09:42)
[2021-08-13] MEDS: Cyanocobalamin (B-12) 1,000 MCG TABLET PO SCH (09:43)
[2021-08-13] MEDS: Carbidopa/Levodopa 25/250 TABLET PO SCH ×2 (11:10→14:27)
[2021-08-13] MEDS ORDERED: Metoclopramide 10 MG/2 ML VIAL IVP ONE ×2 (14:22→14:23)
[2021-08-13] MEDS ORDERED: *HR* Warfarin 4 MG TABLET PO ONE (18:00)
[2021-08-14 01:43] LABS: INR 1.4; Prothrombin Time 15.9 Seconds (9.4-12.1)
[2021-08-14] MEDS: Insulin LISPRO 300 UNITS/3 ML VIAL SUBQ SCH ×4 (02:55→18:06)
[2021-08-14] MEDS: Cholecalciferol (D-3) 1,000 UNIT (25MCG) TABLET PO SCH (07:51)
[2021-08-14] MEDS: *HR* Metformin 500 MG TABLET PO SCH (07:51)
[2021-08-14] MEDS: Carbidopa/Levodopa ER 50/200 TABLET PO SCH ×2 (07:51→20:22)
[2021-08-14] MEDS: Cyanocobalamin (B-12) 1,000 MCG TABLET PO SCH (07:51)
[2021-08-14] MEDS: polyethylene glycoL 3350 17 GM POWD.PACK PO SCH (07:53)
[2021-08-14] MEDS: Carbidopa/Levodopa 25/250 TABLET PO SCH ×2 (11:44→14:41)
[2021-08-14] MEDS: Acetaminophen 325 MG TABLET PO PRN (11:45)
[2021-08-14] MEDS ORDERED: *HR* Warfarin 3 MG TABLET PO ONE (18:00)
[2021-08-15] MEDS: Insulin LISPRO 300 UNITS/3 ML VIAL SUBQ SCH ×6 (00:20→21:52)
[2021-08-15 05:42] LABS: Prothrombin Time 21.9 Seconds (9.4-12.1)
[2021-08-15] MEDS: *HR* Metformin 500 MG TABLET PO SCH (09:29)
[2021-08-15] MEDS: Cholecalciferol (D-3) 1,000 UNIT (25MCG) TABLET PO SCH (09:29)
[2021-08-15] MEDS: polyethylene glycoL 3350 17 GM POWD.PACK PO SCH (09:29)
[2021-08-15] MEDS: Acetaminophen 325 MG TABLET PO PRN (09:29)
[2021-08-15] MEDS: Cyanocobalamin (B-12) 1,000 MCG TABLET PO SCH (09:30)
[2021-08-15] MEDS: Carbidopa/Levodopa ER 50/200 TABLET PO SCH ×2 (09:30→19:55)
[2021-08-15] MEDS: Amoxicillin/Clavulanate 250 MG TABLET PO SCH (12:13)
[2021-08-15] MEDS: Carbidopa/Levodopa 25/250 TABLET PO SCH ×2 (12:13→16:10)
[2021-08-15] MEDS: Sennosides/Docusate Sodium TABLET PO SCH (19:55)
[2021-08-16 03:34] LABS: INR 2.3; Prothrombin Time 25.3 Seconds (9.4-12.1)
[2021-08-16] MEDS: Insulin LISPRO 300 UNITS/3 ML VIAL SUBQ SCH ×4 (07:12→21:23)
[2021-08-16] MEDS: Amoxicillin/Clavulanate 250 MG TABLET PO SCH (08:15)
[2021-08-16] MEDS: Carbidopa/Levodopa ER 50/200 TABLET PO SCH ×2 (08:16→19:37)
[2021-08-16] MEDS: Sennosides/Docusate Sodium TABLET PO SCH ×2 (08:16→19:37)
[2021-08-16] MEDS: polyethylene glycoL 3350 17 GM POWD.PACK PO SCH (08:16)
[2021-08-16] MEDS: Cholecalciferol (D-3) 1,000 UNIT (25MCG) TABLET PO SCH (08:16)
[2021-08-16] MEDS: Cyanocobalamin (B-12) 1,000 MCG TABLET PO SCH (08:16)
[2021-08-16] MEDS: *HR* Metformin 500 MG TABLET PO SCH (08:17)
[2021-08-16] MEDS: Acetaminophen 325 MG TABLET PO PRN ×2 (11:43→19:37)
[2021-08-16] MEDS: Carbidopa/Levodopa 25/250 TABLET PO SCH ×2 (11:45→16:41)
[2021-08-16] MEDS ORDERED: *HR* Warfarin 3 MG TABLET PO ONE (18:00)
[2021-08-17 02:22] LABS: Prothrombin Time 22.2 Seconds (9.4-12.1)
[2021-08-17 06:54] VITALS: O2SAT 91
[2021-08-17] MEDS: Sennosides/Docusate Sodium TABLET PO SCH (07:49)
[2021-08-17] MEDS: Amoxicillin/Clavulanate 250 MG TABLET PO SCH (07:49)
[2021-08-17] MEDS: Cholecalciferol (D-3) 1,000 UNIT (25MCG) TABLET PO SCH (07:49)
[2021-08-17] MEDS: Cyanocobalamin (B-12) 1,000 MCG TABLET PO SCH (07:49)
[2021-08-17] MEDS: *HR* Metformin 500 MG TABLET PO SCH (07:49)
[2021-08-17] MEDS: Carbidopa/Levodopa ER 50/200 TABLET PO SCH (07:49)
[2021-08-17] MEDS: polyethylene glycoL 3350 17 GM POWD.PACK PO SCH (07:50)
[2021-08-17] MEDS: Insulin LISPRO 300 UNITS/3 ML VIAL SUBQ SCH ×2 (07:50→12:22)
[2021-08-17 10:46] VITALS: BP 102/63; PULSE 61; TEMP 97.9
[2021-08-17] MEDS ORDERED: Moderna Covid-19 Vaccine 100MCG/0.5mL IM ONE (11:30)
[2021-08-17] MEDS: Carbidopa/Levodopa 25/250 TABLET PO SCH ×2 (12:22→14:03)
[2021-08-17] MEDS ORDERED: *HR* Warfarin 3 MG TABLET PO ONE (18:00)
== END 2021-08-17 15:30 | DRG 871 ==
LOC: 2ANU 10:32 → EMEROOARM 10:32 → SUATTDRO 13:40 → 2ANU 14:00 → SUATTDRO 08-08 14:13
PROVIDERS: ADMIT Internal Medicine; ATTEND Family Medicine